=== PATIENT | male | born 1935 ===

== ENCOUNTER 2020-04-23 07:23 | Emergency (ER) | payer OTHER, SELFPAY ==
[2020-04-23 07:42] VITALS: BP 177/77; PULSE 99; RESP 19; TEMP 37.5; O2SAT 97; BMI 24.0
--- NOTE | 2020-04-23 08:08 | ED_ITS ---
HPI - URI/Sore Throat General Chief Complaint: Upper Respiratory Symptoms Stated Complaint: throat pain on left side, up into left ear Time Seen by Provider: 04/23/20 08:08 Source: patient Mode of arrival: Ambulatory Limitations: no limitations History of Present Illness HPI Narrative: The patient developed left anterior neck pain yesterday. He has a left-sided sore throat. Pain started rather suddenly yesterday. He has no recent URI symptoms, no sinus pressure or rhinorrhea. He has no allergies. He has no fever. He has mild discomfort with swallowing. He is drinking fluids. He has no cough, no dyspnea. He is a nonsmoker. Related Data Home Medications Medication Instructions Recorded Confirmed simvastatin 10 mg PO HS #0 04/18/17 03/09/18 metoprolol tartrate PO 03/09/18 03/09/18 Previous Rx's Medication Instructions Recorded amoxicillin-pot clavulanate 1 tab PO BID #14 tab 04/23/20 [Augmentin] Allergies Allergy/AdvReac Type Severity Reaction Status Date / Time No Known Allergies Allergy Uncoded 12/24/17 12:46 Review of Systems Constitutional Constitutional: Denies chills, Denies fever(s) and Denies weakness Eyes Comments: No eye complaints. ENT Ears, Nose, Mouth, and Throat: Reports as per HPI and Denies dental pain Cardiovascular Cardiovascular: Denies chest pain and Denies dyspnea Respiratory Respiratory: Denies dyspnea Neurologic Neurologic: Denies weakness Patient History Medical History Hyperlipidemia (Acute) Hypertension (Acute) Surgical History (Updated 04/23/20 @ 11:18 by Tristan Fabian MD) No history of previous surgery (Acute) Social History Smoking Status: Never smoker Smoking Status: Never smoker alcohol intake frequency: a few times a week Substance Use Type: does not use Exam Initial Vital Signs Initial Vital Signs: Vital Signs Temperature 99.5 F 04/23/20 07:42 Pulse Rate 99 H 04/23/20 07:42 Respiratory Rate 19 04/23/20 07:42 Blood Pressure 177/77 H 04/23/20 07:42 Pulse Oximetry 97 04/23/20 07:42 Const General: cooperative and well developed Nutritional Appearance: well nourished HENMT Head: normocephalic and atraumatic Nose: nares normal Face and sinus: sinuses nontender Mouth: tongue normal and salivary duct abnormal (Edema, tenderness and warmth o melodie the left submandibular gland.) Throat: tonsils normal and posterior oropharynx abnormal (Left-sided erythema. No induration.) Neck Neck: No lymphadenopathy Resp Auscultation: clear to auscultation bilaterally Cardio Rate: regular rate Rhythm: regular rhythm Heart Sounds: S1 normal and S2 normal Course Vital Signs Vital signs: Vital Signs - 8 hr 04/23/20 07:42 04/23/20 09:07 Temperature 99.5 F Pulse Rate 99 H 90 Respiratory Rate 19 Blood Pressure 177/77 H 156/74 H Pulse Oximetry 97 97 MDM - URI/Sore Throat Lab Data Labs: Point of Care Testing Rapid Strep A Negative Discharge Plan Departure Patient Disposition: Home Clinical Impression: Salivary gland infection Discharge Date/Time: 04/23/20 09:08 Instructions: Parotitis Activity Restrictions/Additional Instructions: Augmentin 2 times daily as prescribed. Tylenol 2 tablets every 4 hours as needed for pain. Be sure you are drinking plenty of water and staying well hydrated. Eat normally. If you have increased pain or fever return here, if simply not improving you should see an oral surgeon. I will give you his contact information. Prescriptions: New amoxicillin-pot clavulanate [Augmentin] 875-125 mg tablet 1 tab PO BID Qty: 14 RF: 0 No Action metoprolol tartrate PO RF: 0 simvastatin 10 MG tablet 10 mg PO HS Qty: 0 RF: 0 Referrals: Jw Trejo DMD [Physician] -
[2020-04-23 09:07] VITALS: BP 156/74; PULSE 90; O2SAT 97
== END 2020-04-23 09:08 | disposition home or self-care (01) ==
PROVIDERS: Emergency Provider Emergency Medicine
DX: K11.20 Sialoadenitis, unspecified (principal); E78.5 Hyperlipidemia, unspecified; I10 Essential (primary) hypertension
CPT/HCPCS: 87880; 99281; 99282